=== PATIENT | female | born 1985 | race Caucasian/White ===

== ENCOUNTER 2017-12-28 19:42 | Observation (INO) | payer SELFPAY ==
[2017-12-28] MEDS ORDERED: LORAZEPAM 2 MG/ML SOL IV ONE ×3 (19:46→22:02)
[2017-12-28] MEDS ORDERED: LORAZEPAM 2 MG/ML SOL ONE ×2 (19:52→22:02)
[2017-12-28 20:31] LABS: APPEARANCE,URINE Slightly Cloudy; BILIRUBIN,URINE NEGATIVE (NEGATIVE); COLOR,URINE Yellow; GLUCOSE, URINE (UA) NEGATIVE (NEGATIVE); KETONES,URINE TRACE (NEGATIVE); LEUKOCYTE ESTERASE ,URINE NEGATIVE (NEGATIVE); NITRATE,URINE NEGATIVE (NEGATIVE); OCCULT BLOOD,URINE NEGATIVE (NEG-TRACE); UROBILINOGEN,URINE 0.2 (0.2-1.0 EU)
[2017-12-28 20:40] LABS: BASOPHILS % (AUTO) 1 % (0-3); EOSINOPHILS % (AUTO) 2 % (0-9); HEMATOCRIT 35 % (35-47); HEMOGLOBIN 12.5 gm/dl (12.0-15.5); MEAN CORPUSCULAR HEMOGLOBIN 31.3 pg (27.0-32.0); MEAN CORPUSCULAR HGB CONC 36.1 gm/dl (32.0-36.0); MEAN CORPUSCULAR VOLUME 87 fL (81-99); MONOCYTES % (AUTO) 4.4 % (0-12); NEUTROPHILS % (AUTO) 75.5 % (37-80)
[2017-12-28 20:51] LABS: AMPHETAMINES POSITIVE (NEGATIVE); BARBITUATES NEGATIVE (NEGATIVE); BENZODIAZEPINES NEGATIVE (NEGATIVE); CANNABINOL(THC) NEGATIVE (NEGATIVE); COCAINE(COC) NEGATIVE (NEGATIVE); METHADONE NEGATIVE (NEGATIVE); METHAMPHETAMINES POSITIVE (NEGATIVE); OPIATES(OP13) NEGATIVE (NEGATIVE); OXYCODONE(OXY) NEGATIVE (NEGATIVE); PROPOXYPHENE(PPX) NEGATIVE (NEGATIVE); TRICYCLIC ANTIDEPRESSANTS NEGATIVE (NEGATIVE)
[2017-12-28 20:52] LABS: ALBUMIN 4.1 gm/dl (3.4-5.0); BILIRUBIN,TOTAL 0.4 mg/dl (0.2-1.0); CALCIUM 9.5 mg/dl (8.5-10.1); CARBON DIOXIDE 25.7 mEq/L (21-32); CREATININE 0.82 mg/dl (0.60-1.00); POTASSIUM 3.5 mMol/L (3.5-5.1); TOTAL PROTEIN 7.2 gm/dl (6.4-8.2)
[2017-12-28 20:57] LABS: RBC,URINE 0-1 (0-3AV/HPF)
[2017-12-28 20:58] LABS: BACTERIA 1+ (< 1+); CRYSTALS NEGATIVE (0-3 AVE/HPF)
[2017-12-28] MEDS ORDERED: HALOPERIDOL LACTATE 5 MG/ML SOL IM ONE (22:01)
[2017-12-28] MEDS ORDERED: HALOPERIDOL LACTATE 5 MG/ML SOL ONE (22:02)
[2017-12-28] MEDS ORDERED: HALOPERIDOL LACTATE 5 MG/ML SOL IM PRN (22:29)
[2017-12-28] MEDS ORDERED: LORAZEPAM 2 MG/ML 10ML MDV 2 MG/ML VIAL IV PRN (22:31)
[2017-12-29] MEDS ORDERED: LORAZEPAM 2 MG/ML SOL IV PRN (02:10)
[2017-12-29 09:56] VITALS: RESP 16
[2017-12-29 15:15] VITALS: O2SAT 100
[2017-12-29 15:53] VITALS: BP 120/82; TEMP 98.3
[2017-12-29 15:56] VITALS: PULSE 81
== END 2017-12-29 16:25 | disposition short-term general hospital (02) | DRG 605 ==
LOC: ED 19:42 → ACUTE CARE 22:21
PROVIDERS: ADMIT Family Medicine; ATTEND Family Medicine
DX: S00.33XA Contusion of nose, initial encounter (principal); R41.82 Altered mental status, unspecified; F15.10 Other stimulant abuse, uncomplicated; Y04.2XXA Assault by strike against or bumped into by another person, initial encounter
CPT/HCPCS: 36415; 70160; 71045; 80053; 80305; 81001; 84703; 85025; 94762; 96372; 96374; 99219; 99284; J1630; J2060